=== PATIENT | male | born 1975 | race Caucasian/White ===

== ENCOUNTER 2017-03-25 02:22 | Emergency (ER) | payer BC ==
[2017-03-25] MEDS ORDERED: KETOROLAC 30 MG/ML 1 ML VIAL IVP STA (03:00)
[2017-03-25] MEDS ORDERED: SODIUM CHLORIDE 0.9% 1,000 ML IV ONE (03:00)
[2017-03-25] MEDS ORDERED: HYDROmorphone 1 MG/ML 1 ML SYRINGE IVP STA ×2 (03:00→04:23)
--- NOTE | 2017-03-25 03:04 | ED ---
Abdominal Pain HPI - General Chief Complaint: Abdominal Pain Stated Complaint: Abdominal Pain Time Seen by Provider: 03/25/17 02:45 Source: patient Mode of arrival: ambulatory Limitations: no limitations - History of Present Illness Initial Comments: 41-year-old male patient presents to emergency department today for evaluation of right flank pain. He states that the pain begins in his back and radiates around to the front down into his right groin. Patient states he is having some right testicular pain with this. He states symptoms started around 11 PM last evening. He states that since then he has been nauseated and he did vomit one time. He describes the pain as a sharp stabbing constant pain. He rates the pain currently at a 10/10 on the pain scale. He denies any history of similar symptoms. Patient denies any constipation or diarrhea. He denies any fevers or chills however states that right now he does feel clammy and sweaty. He denies any chest pain or trouble breathing. Patient denies any recent cough, congestion, rash, numbness, tingling, dizziness, weakness, hematuria, dysuria, urinary urgency, urinary frequency, headache, visual changes, or any other complaints. - Related Data Home Medications Medication Instructions Recorded Confirmed Omeprazole [PriLOSEC] 10 mg PO 03/25/17 Previous Rx's Medication Instructions Recorded Hydrocodone/Acetaminophen [Nadeau 1 tab PO Q4H PRN #25 tab 03/25/17 5-325] Tamsulosin HCl [Flomax] 0.4 mg PO DAILY #7 cap 03/25/17 Allergies Allergy/AdvReac Type Severity Reaction Status Date / Time No Known Allergies Allergy Verified 03/25/17 02:43 Review of Systems ROS Statement: Those systems with pertinent positive or pertinent negative responses have been documented in the HPI. ROS Other: All systems not noted in ROS Statement are negative. Past Medical History Past Medical History: GERD/Reflux History of Any Multi-Drug Resistant Organisms: None Reported Past Surgical History: Orthopedic Surgery Past Psychological History: No Psychological Hx Reported Smoking Status: Never smoker Past Alcohol Use History: Occasional Past Drug Use History: None Reported General Exam Limitations: no limitations General appearance: alert, in no apparent distress, other (This is a well- developed, well-nourished adult male patient in mild distress. Vital signs upon presentation her temperature 97.3, pulse 45, respirations 18, 122/66, pulse ox 99% on room air.) ENT exam: Present: normal exam, normal oropharynx, mucous membranes moist Respiratory exam: Present: normal lung sounds bilaterally. Absent: respiratory distress, wheezes, rales, rhonchi, stridor Cardiovascular Exam: Present: normal rhythm, bradycardia, normal heart sounds. Absent: systolic murmur, diastolic murmur, rubs, gallop, clicks GI/Abdominal exam: Present: soft, tenderness (Right lower quadrant tenderness), normal bowel sounds. Absent: distended, guarding, rebound, rigid Back exam: Present: normal inspection, CVA tenderness (R). Absent: CVA tenderness (L), rash noted Neurological exam: Present: alert, oriented X3, CN II-XII intact Psychiatric exam: Present: normal affect, normal mood Skin exam: Present: warm, dry, intact, normal color. Absent: rash Course Vital Signs 03/25/17 02:40 Temperature 97.3 F L Pulse Rate 45 L Respiratory 18 Rate Blood Pressure 122/66 O2 Sat by Pulse 99 Oximetry Medical Decision Making - Medical Decision Making 41-year-old male patient presented to emergency department today for evaluation of right flank pain with radiation into the right groin. Lab work was reviewed and did show a BUN of 21, creatinine of 1.40, and a blood glucose of 159. Patient denies any history of hyperglycemia, renal dysfunction, or diabetes. Urinalysis was positive for trace protein, large amount of blood, greater than 182 red blood cells, and rare mucous. Patient was informed of these findings including hyperglycemia, ureteral calculus, and a 13 mm kidney lesion. Patient will be discharged home with instructions to increase clear fluids. He is given instructions to take pain medications as directed. He was instructed that he needs to call the urologist and the tray packer for follow-up appointment on Monday. He was given for specific information to relay while making the appointment. He was instructed to return here immediately for any new, worsening, or concerning symptoms. Patient and verbalized understanding and agree with this plan. - Lab Data Result diagrams: 03/25/17 03:24 03/25/17 03:24 Lab Results 03/25/17 03/25/17 03/25/17 Range/Units 03:24 03:24 03:24 WBC 9.8 (3.8-10.6) k/uL RBC 5.03 (4.30-5.90) m/uL Hgb 15.9 (13.0-17.5) gm/dL Hct 47.4 (39.0-53.0) % MCV 94.2 (80.0-100.0) fL MCH 31.7 (25.0-35.0) pg MCHC 33.6 (31.0-37.0) g/dL RDW 14.5 (11.5-15.5) % Plt Count 225 (150-450) k/uL Neutrophils % 67 % Lymphocytes % 23 % Monocytes % 6 % Eosinophils % 1 % Basophils % 1 % Neutrophils # 6.6 (1.3-7.7) k/uL Lymphocytes # 2.3 (1.0-4.8) k/uL Monocytes # 0.6 (0-1.0) k/uL Eosinophils # 0.1 (0-0.7) k/uL Basophils # 0.1 (0-0.2) k/uL Sodium 139 (137-145) mmol/L Potassium 4.0 (3.5-5.1) mmol/L Chloride 101 (98-107) mmol/L Carbon Dioxide 26 (22-30) mmol/L Anion Gap 12 mmol/L BUN 21 H (9-20) mg/dL Creatinine 1.40 H (0.66-1.25) mg/dL Est GFR (MDRD) Af Amer >60 (>60 ml/min/1.73 sqM) Est GFR (MDRD) Non-Af 55 (>60 ml/min/1.73 sqM) Glucose 159 H (74-99) mg/dL Calcium 9.8 (8.4-10.2) mg/dL Total Bilirubin 0.4 (0.2-1.3) mg/dL AST 51 (17-59) U/L ALT 95 H (21-72) U/L Alkaline Phosphatase 67 (38-126) U/L Total Protein 7.5 (6.3-8.2) g/dL Albumin 4.6 (3.5-5.0) g/dL Amylase 50 (30-110) U/L Lipase 61 (23-300) U/L Urine Color Yellow Urine Appearance Clear (Clear) Urine pH 6.0 (5.0-8.0) Ur Specific Jessie 1.026 (1.001-1.035) Urine Protein Trace H (Negative) Urine Glucose (UA) Negative (Negative) Urine Ketones Negative (Negative) Urine Blood Large H (Negative) Urine Nitrite Negative (Negative) Urine Bilirubin Negative (Negative) Urine Urobilinogen <2.0 (<2.0) mg/dL Ur Leukocyte Esterase Negative (Negative) Urine RBC >182 H (0-5) /hpf Urine WBC 2 (0-5) /hpf Urine Mucus Rare H (None) /hpf - Radiology Data Radiology results: report reviewed, image reviewed K[facility] x-ray of the abdomen shows the GI tract shows moderate stool in the colon. No dilation. Bones and joints are unremarkable. Limited evaluation for stone. No obvious calcifications over the renal shadows around the pelvis. Impression by Dr. Mason shows no acute findings. CT of the abdomen and pelvis was performed without contrast. Report reviewed in its entirety. Of note was a 2 mm stone in the right UVJ resulting in mild right hydronephrosis. No renal stones. A 13 mm low density lesion in the right kidney was seen. Disposition Clinical Impression: Kidney stone on right side, Kidney lesion, Impaired renal function Disposition: HOME SELF-CARE Condition: Good Instructions: Kidney Stones (ED), Flank Pain (ED), Impaired Kidney Function (ED ) Additional Instructions: Increase clear fluids. Take pain medications as directed. Call tray packer and urologist Monday morning to make appointments. Let them know that you have a kidney stone, impaired renal function, and a 13 mm lesion on the right kidney. Follow-up with her primary care physician for recheck. Return here immediately for any new, worsening, or concerning symptoms. Prescriptions: Hydrocodone/Acetaminophen [Nadeau 5-325] 1 tab PO Q4H PRN #25 tab PRN Reason: Pain Tamsulosin HCl [Flomax] 0.4 mg PO DAILY #7 cap Referrals: Nonstaff,Physician [Primary Care Provider] - 1-2 days Chaz Funes MD [STAFF PHYSICIAN] - 1-2 days Raya Alejandra MD [STAFF PHYSICIAN] - 1-2 days Time of Disposition: 05:54
[2017-03-25 03:34] LABS: Basophils # (A) 0.1 k/uL (0-0.2); Basophils % (A) 1 %; CH 33.6; CHCM 35.8; Eosinophils # (A) 0.1 k/uL (0-0.7); Eosinophils % (A) 1 %; HCT 47.4 % (39.0-53.0); HDW 2.64; HGB 15.9 gm/dL (13.0-17.5); Luc # (Auto) 0.18; Luc % (Auto) 2; Lymphocytes # (A) 2.3 k/uL (1.0-4.8); Lymphocytes % (A) 23 %; MCH 31.7 pg (25.0-35.0); MCHC 33.6 g/dL (31.0-37.0); MCV 94.2 fL (80.0-100.0); Mean Platelet Volume 9.3; Monocytes # (A) 0.6 k/uL (0-1.0); Monocytes % (A) 6 %; Neutrophils # (A) 6.6 k/uL (1.3-7.7); Neutrophils % (A) 67 %; RBC 5.03 m/uL (4.30-5.90); RDW 14.5 % (11.5-15.5); WBC 9.8 k/uL (3.8-10.6); WBC (Perox) 9.37
[2017-03-25 03:41] LABS: Appearance,Urine Clear (Clear); Bilirubin,Urine Negative (Negative); Glucose,Urine (UA) Negative (Negative); Ketones,Urine Negative (Negative); Leukocyte Esterase,Urine Negative (Negative); Mucus,Urine Rare /hpf; Nitrite,Urine Negative (Negative); Particle Count 1810; Protein,Urine Trace (Negative); RBC,Urine >182 /hpf (0-5); Specific Gravity,Urine 1.026 (1.001-1.035); UA Billing (MACRO vs. MICRO) MICRO; Urobilinogen,Urine <2.0 mg/dL (<2.0); WBC,Urine 2 /hpf (0-5)
[2017-03-25 03:47] LABS: ALT 95 U/L (21-72); AST 51 U/L (17-59); Alkaline Phosphatase 67 U/L (38-126); Amylase 50 U/L (30-110); Anion Gap 12 mmol/L; Blood Urea Nitrogen 21 mg/dL (9-20); Calcium 9.8 mg/dL (8.4-10.2); Carbon Dioxide 26 mmol/L (22-30); Chloride 101 mmol/L (98-107); Glucose 159 mg/dL (74-99); Non-African American GFR(MDRD) 55 (>60 ml/min/1.73 sqM); Sodium 139 mmol/L (137-145); Total Bilirubin 0.4 mg/dL (0.2-1.3); Total Protein 7.5 g/dL (6.3-8.2)
[2017-03-25] MEDS ORDERED: SODIUM CHLORIDE 0.9% 1,000 ML IV STA (04:03)
--- NOTE | 2017-03-25 04:50 | XR ---
EXAM: XR Abdomen, 1 View CLINICAL HISTORY: Pt. c/o right flank pain that radiates into groin TECHNIQUE: Frontal supine view of the abdomen/pelvis. COMPARISON: No relevant prior studies available. FINDINGS: Gastrointestinal tract: Moderate stool in colon. No dilation. Bones/joints: Unremarkable. Other findings: Limited evaluation for stones. No obvious calcifications over the renal shadows or in the pelvis. IMPRESSION: No acute findings.
--- NOTE | 2017-03-25 05:38 | CT ---
EXAM: CT Abdomen and Pelvis Without Intravenous Contrast CLINICAL HISTORY: Pt. c/o right flank pain that radiates into groin. No prev surgeries to abdomen TECHNIQUE: Axial computed tomography images of the abdomen and pelvis without intravenous contrast. CTDI is 17.6 mGy and DLP is 1057.4 mGy-cm. This CT exam was performed using one or more of the following dose reduction techniques: automated exposure control, adjustment of the mA and/or kV according to patient size, and/or use of iterative reconstruction technique. Coronal and sagittal reformatted images were created and reviewed. COMPARISON: [facility] today FINDINGS: Lower thorax: Small hiatal hernia. ABDOMEN: Liver: Unremarkable. Gallbladder and bile ducts: Unremarkable. No calcified stones. No ductal dilation. Pancreas: Unremarkable. No ductal dilation. Spleen: Unremarkable. No splenomegaly. Adrenals: Unremarkable. No mass. Kidneys and ureters: 2 mm stone in the right UVJ resulting in mild right hydronephrosis. No renal stones. 13 mm low-density lesion right kidney. Stomach and bowel: A few scattered colonic diverticulosis without acute diverticulitis. No obstruction. Appendix: No findings to suggest acute appendicitis. PELVIS: Bladder: Unremarkable. No stones. Reproductive: Unremarkable as visualized. ABDOMEN and PELVIS: Intraperitoneal space: Unremarkable. No free air. No significant fluid collection. Bones/joints: No acute fracture. No dislocation. Soft tissues: Small bilateral fat-containing inguinal hernias. . Vasculature: Unremarkable. No abdominal aortic aneurysm. Lymph nodes: Unremarkable. No enlarged lymph nodes. IMPRESSION: 2 mm stone in the right UVJ resulting in mild right hydronephrosis.
[2017-03-25 06:45] VITALS: BP 120/60; PULSE 60; RESP 15; TEMP 98.3
== END 2017-03-25 06:46 | disposition home or self-care (01) ==
LOC: EC 02:22
DX: N20.0 Calculus of kidney (principal); N28.9 Disorder of kidney and ureter, unspecified; N50.811 Right testicular pain; K21.9 Gastro-esophageal reflux disease without esophagitis; Z79.899 Other long term (current) drug therapy
CPT/HCPCS: 99284; 96374; 96375; 96376; 96361 ×2; 36415; 80053; 82150; 83690; 85025; 81001; 74000; 74176; J1885; J1170

== ENCOUNTER → 2017-04-11 | Outpatient (CLI) | payer BC ==
--- NOTE | 2017-04-11 10:24 | US ---
EXAMINATION TYPE: US kidneys/renal and bladder DATE OF EXAM: 04/11/2017 COMPARISON: CT abdomen and pelvis March 25, 2017 CLINICAL HISTORY: R19.00 ABD PELVIC MASS. Abnormal CT right kidney EXAM MEASUREMENTS: Right Kidney: 12.0 x 4.9 x 5.6 cm Left Kidney: 12.5 x 6.4 x 5.7 cm Right Kidney: Hypoechoic lesion lower pole= 1.5 x 1.3 x 1.3 cm Left Kidney: Appeared wnl Bladder: wnl Bilateral Jets seen: Yes There is no evidence for hydronephrosis at this point in time. No nephrolithiasis is seen. The ur inary bladder is anechoic. Bilateral ureteral jets are seen. Corresponding to CT abnormality there is 1.5 x 1.3 cm round anechoic to hypoechoic exophytic lesion t oo small to further characterize laterally lower pole level in right kidney favoring simple cyst. Inc idental note is made of heterogeneous hyperechoic appearance of visualized liver consistent with diff use fatty infiltration. IMPRESSION: Probable 1.3 cm exophytic simple cyst. Consider ultrasound follow-up in 6-12 months time to document stability.
== END | disposition home or self-care (01) ==
LOC: RADUSWWP 09:38
PROVIDERS: ATTEND Urology
DX: R19.00 Intra-abdominal and pelvic swelling, mass and lump, unspecified site (principal); Z88.6 Allergy status to analgesic agent
CPT/HCPCS: 76770